=== PATIENT | male | born 1995 | race American Indian/Alaskan Native ===

== ENCOUNTER 2016-12-11 10:11 | Emergency (ER) | payer SELFPAY ==
[2016-12-11 11:51] LABS: Basophils % (Auto) 0.4 % (0.0-1.8); Eosinophils % (Auto) 0.4 % (0.0-4.3); Mean Corpuscular HGB Conc 33 % (32-34); Mean Corpuscular Hemoglobin 31 pg (28-32); Mean Corpuscular Volume 93 fl (84-94); Platelet Count 176 K/mm3 (140-440); Red Blood Count 4.85 M/mm3 (3.65-5.03); Red Cell Distribution Width 12.6 % (13.2-15.2); White Blood Count 6.4 K/mm3 (4.5-11.0)
[2016-12-11 11:59] LABS: Alanine Aminotransferase 11 units/L (7-56); Albumin 4.2 g/dL (3.9-5); Albumin/Globulin Ratio 1.8 %; Alkaline Phosphatase 55 units/L (35-129); Anion Gap 14 mmol/L; Bilirubin,Total 0.2 mg/dL (0.1-1.2); Blood Urea Nitrogen 13 mg/dL (9-20); Calcium 9.3 mg/dL (8.4-10.2); Carbon Dioxide 28 mmol/L (22-30); Chloride 103.7 mmol/L (98-107); Glucose 86 mg/dL (75-100); Lipase 24 units/L (13-60); Potassium 4.3 mmol/L (3.6-5.0); Sodium 141 mmol/L (137-145); Total Protein 6.5 g/dL (6.3-8.2)
--- NOTE | 2016-12-11 14:55 | Emergency Department Report ---
ED Abdominal Pain HPI - General Chief Complaint: Abdominal Pain Stated Complaint: ABDOMINAL PAIN Time Seen by Provider: 12/11/16 14:55 Source: patient Mode of arrival: Ambulatory Limitations: No Limitations - History of Present Illness Initial Comments: Patient complaining of intermittent cramping abdominal pain for the past 3 weeks. Patient denies fever, chills, testicular pain, dysuria, anorexia, or postprandial pain. MD Complaint: abdominal pain Location: periumbilical, LUQ, LLQ Migration to: no migration Severity: mild Severity scale (0 -10): 3 Quality: cramping Consistency: intermittent, now resolved Improves With: nothing Worsens With: nothing Associated Symptoms: vomiting. denies: diarrhea, chills, constipation, dysuria , hematochezia, anorexia - Related Data Previous Rx's Medication Instructions Recorded Last Taken Type Dicyclomine [Bentyl] 20 mg PO QID #15 bottle 12/11/16 Unknown Rx Allergies Allergy/AdvReac Type Severity Reaction Status Date / Time No Known Allergies Allergy Unverified 06/30/15 11:57 ED Review of Systems ROS: Stated complaint: ABDOMINAL PAIN Other details as noted in HPI Constitutional: denies: chills, fever Eyes: denies: eye pain, eye discharge, vision change ENT: denies: ear pain, throat pain Respiratory: denies: cough, shortness of breath, wheezing Cardiovascular: denies: chest pain, palpitations Endocrine: no symptoms reported Gastrointestinal: abdominal pain, nausea, vomiting. denies: diarrhea, constipation Genitourinary: denies: urgency, dysuria, testicular pain, testicular mass Musculoskeletal: denies: back pain, joint swelling, arthralgia Skin: denies: rash, lesions Neurological: denies: headache, weakness, paresthesias Psychiatric: denies: anxiety, depression Hematological/Lymphatic: denies: easy bleeding, easy bruising ED Past Medical Hx - Past Medical History Previous Medical History?: No - Surgical History Past Surgical History?: No - Social History Smoking Status: Current Some Day Smoker Substance Use Type: Alcohol, Marijuana - Medications Home Medications: Home Medications Medication Instructions Recorded Confirmed Last Taken Type Dicyclomine [Bentyl] 20 mg PO QID #15 bottle 12/11/16 Unknown Rx ED Physical Exam - General Limitations: No Limitations General appearance: alert, in no apparent distress - Head Head exam: Present: atraumatic, normocephalic - Eye Eye exam: Present: normal appearance, PERRL, EOMI - ENT ENT exam: Present: mucous membranes moist - Neck Neck exam: Present: normal inspection - Respiratory Respiratory exam: Present: normal lung sounds bilaterally, wheezes, rales. Absent: respiratory distress - Cardiovascular Cardiovascular Exam: Present: regular rate, normal rhythm. Absent: systolic murmur, diastolic murmur, rubs, gallop - GI/Abdominal GI/Abdominal exam: Present: soft, normal bowel sounds. Absent: distended, tenderness (resolved), guarding, rebound, rigid - Rectal Rectal exam: Present: deferred - Extremities Exam Extremities exam: Present: normal inspection - Back Exam Back exam: Present: normal inspection - Neurological Exam Neurological exam: Present: alert, oriented X3 - Psychiatric Psychiatric exam: Present: normal affect, normal mood - Skin Skin exam: Present: warm, dry, intact, normal color. Absent: rash ED Course Vital Signs 12/11/16 12/11/16 11:05 17:16 Temperature 97.9 F Pulse Rate 61 70 Respiratory 18 20 Rate Blood Pressure 114/73 Blood Pressure 122/68 [Right] O2 Sat by Pulse 99 99 Oximetry - Reevaluation(s) Reevaluation #1: 12/11/16 17:02 Resting comfortably, afebrile, normotensive normal cardiac and no distress. ED Medical Decision Making - Lab Data Result diagrams: 12/11/16 11:27 12/11/16 11:27 - EKG Data Rate: normal - Radiology Data No acute findings - Medical Decision Making I discussed the patient at since this is been intermittent crampy abdominal pain for the past several weeks since his labs are normal and has a normal abdominal exam on palpation and auscultation that CAT scan is neither needed or warranted. I explained to patient to follow up with GI would be best approach determining what is causing his abdominal cramping. Patient verbalized understanding of this and understands to return immediately to the ER for increased nausea vomiting, fever, increased pain, or any change that concerns him. Critical care attestation.: If time is entered above; I have spent that time in minutes in the direct care of this critically ill patient, excluding procedure time. ED Disposition Clinical Impression: Abdominal cramping in left lower quadrant Disposition: DISCHARGED TO HOME OR SELFCARE Is pt being admited?: No Condition: Stable Instructions: Abdominal Pain (ED) Prescriptions: Dicyclomine [Bentyl] 20 mg PO QID #15 bottle Referrals: PRIMARY CAREMD [Primary Care Provider] - 3-5 Days DANNY RIBEIRO MD [Staff Physician] - 3-5 Days Forms: Work/School Release Form(ED)
[2016-12-11 16:14] LABS: Bilirubin,Urine NEG (Negative); Blood,Urine NEG (Negative); Ketones,Urine NEG (Negative); Leukocyte Esterase,Urine NEG (Negative); Mucus,Urine FEW /HPF; Nitrite,Urine NEG (Negative); Protein,Urine <15 mg/dL mg/dL (Negative); Urobilinogen,Urine < 2.0 mg/dL (<2.0)
[2016-12-11 16:16] LABS: WBC,Urine < 1.0 /HPF (0.0-6.0)
[2016-12-11 17:17] VITALS: BP 122/68
== END 2016-12-11 17:16 | disposition home or self-care (01) ==
LOC: ED 10:11
DX: R10.32 Left lower quadrant pain (principal); F17.200 Nicotine dependence, unspecified, uncomplicated; F12.10 Cannabis abuse, uncomplicated
CPT/HCPCS: 36415; 80053; 81001; 83690; 85025; 99283

== ENCOUNTER 2017-02-08 08:26 | Emergency (ER) | payer SELFPAY ==
[2017-02-08 09:00] LABS: Basophils % (Auto) 0.6 % (0.0-1.8); Eosinophils % (Auto) 0.8 % (0.0-4.3); Hematocrit 43.6 % (35.5-45.6); Hemoglobin 14.7 gm/dl (11.8-15.2); Mean Corpuscular HGB Conc 34 % (32-34); Mean Corpuscular Hemoglobin 32 pg (28-32); Mean Corpuscular Volume 94 fl (84-94); Platelet Count 174 K/mm3 (140-440); Red Blood Count 4.64 M/mm3 (3.65-5.03); Red Cell Distribution Width 13.2 % (13.2-15.2); White Blood Count 5.6 K/mm3 (4.5-11.0)
[2017-02-08 09:41] LABS: Anion Gap 18 mmol/L; BUN/Creatinine Ratio 25.71; Blood Urea Nitrogen 18 mg/dL (9-20); Calcium 9.1 mg/dL (8.4-10.2); Carbon Dioxide 23 mmol/L (22-30); Chloride 101.4 mmol/L (98-107); Glucose 99 mg/dL (75-100); Potassium 4.1 mmol/L (3.6-5.0); Sodium 138 mmol/L (137-145)
--- NOTE | 2017-02-08 11:34 | Emergency Department Report ---
ED Chest Pain HPI - General Chief Complaint: Chest Pain Stated Complaint: VOMITING/CP Time Seen by Provider: 02/08/17 11:20 Source: patient Mode of arrival: Ambulatory Limitations: No Limitations - History of Present Illness Initial Comments: 21-year-old male past medical history GERD presents with complaint of one episode of brief chest pain 3 days ago. Patient states that he was flexing his chest and felt slight upper chest pain. Last for a few moments and went away. Patient also states that he has been having discharge from his penis and burning when he urinates for approximately one week. Patient is unsure if he was exposed to chlamydia or gonorrhea. Denies any fevers chills no nausea no vomiting no shortness of breath no palpitations no headache no dizziness reported by patient. Is awake alert and oriented 3 not in acute distress, nontoxic appearing. Patient states he smokes marijuana occasionally. MD Complaint: chest pain Onset/Timin -: days(s) Pain Location: other (upper anterior chest wall) Pain Radiation: none Severity: mild Consistency: now resolved Treatments Prior to Arrival: none Aspirin use within the Past 7 Days: (0) No - Related Data Previous Rx's Medication Instructions Recorded Last Taken Type Famotidine [Pepcid] 20 mg PO BID #60 tablet 02/08/17 Unknown Rx Lansoprazole [Prevacid] 15 mg PO BID #60 cap 02/08/17 Unknown Rx Naproxen [Naproxen TAB] 250 mg PO BID PRN #20 tablet 02/08/17 Unknown Rx Allergies Allergy/AdvReac Type Severity Reaction Status Date / Time No Known Allergies Allergy Unverified 02/08/17 08:43 BRONWYN score - Bronwyn Score Age > 65: (0) No Aspirin use within the Past 7 Days: (0) No 3 or more CAD Risk Factors: (0) No 2 or more Angina events in past 24 hrs: (0) No Known CAD with more than 50% Stenosis: (0) No Elevated Cardiac Markers: (0) No ST Deviation Greater than 0.5mm: (0) No BRONWYN Score: 0 ED Review of Systems ROS: Stated complaint: VOMITING/CP Other details as noted in HPI Constitutional: denies: chills, fever Eyes: denies: eye pain, eye discharge, vision change ENT: denies: ear pain, throat pain Respiratory: denies: cough, shortness of breath, wheezing Cardiovascular: chest pain (1 episode of brief chest pain 3 days ago.). denies : palpitations Endocrine: no symptoms reported Gastrointestinal: denies: abdominal pain, nausea, diarrhea Genitourinary: dysuria (dysuria and discharge approximately one week.). denies : urgency Musculoskeletal: denies: back pain, joint swelling, arthralgia Skin: denies: rash, lesions Neurological: denies: headache, weakness, paresthesias Psychiatric: denies: anxiety, depression Hematological/Lymphatic: denies: easy bleeding, easy bruising ED Past Medical Hx - Past Medical History Previous Medical History?: No - Surgical History Past Surgical History?: No - Social History Smoking Status: Never Smoker Substance Use Type: Alcohol, Marijuana - Medications Home Medications: Home Medications Medication Instructions Recorded Confirmed Last Taken Type Famotidine [Pepcid] 20 mg PO BID #60 tablet 02/08/17 Unknown Rx Lansoprazole [Prevacid] 15 mg PO BID #60 cap 02/08/17 Unknown Rx Naproxen [Naproxen TAB] 250 mg PO BID PRN #20 tablet 02/08/17 Unknown Rx ED Physical Exam - General Limitations: No Limitations General appearance: alert, in no apparent distress - Head Head exam: Present: atraumatic, normocephalic - Eye Eye exam: Present: normal appearance, PERRL, EOMI - ENT ENT exam: Present: mucous membranes moist - Neck Neck exam: Present: normal inspection - Respiratory Respiratory exam: Present: normal lung sounds bilaterally, chest wall tenderness (reproducible chest wall tenderness anterior chest). Absent: respiratory distress - Cardiovascular Cardiovascular Exam: Present: regular rate, normal rhythm. Absent: systolic murmur, diastolic murmur, rubs, gallop - GI/Abdominal GI/Abdominal exam: Present: soft, normal bowel sounds - Rectal Rectal exam: Present: deferred - Extremities Exam Extremities exam: Present: normal inspection - Back Exam Back exam: Present: normal inspection - Neurological Exam Neurological exam: Present: alert, oriented X3 - Psychiatric Psychiatric exam: Present: normal affect, normal mood - Skin Skin exam: Present: warm, dry, intact, normal color. Absent: rash ED Course Vital Signs 02/08/17 08:43 Temperature 98.0 F Pulse Rate 65 Respiratory 16 Rate Blood Pressure 111/77 O2 Sat by Pulse 100 Oximetry ED Medical Decision Making - Lab Data Result diagrams: 02/08/17 08:50 02/08/17 08:50 - Medical Decision Making A/P: Chest pain, urethritis 1-empiric treatment of urethritis 2-troponin negative 2, EKG sinus rhythm, chest x-ray within normal limits, BMP within normal limits. BRONWYN 0 points 5% risk at 14 days of: all-cause mortality, new or recurrent WA, or severe recurrent ischemia requiring urgent revascularization. HEART Score 0 points Low Score (0-3 points) Risk of MACE of 0.9-1.7%. Wells score for PE 0.0 points. Low risk group: 1.3% chance of PE in an ED population. Another study assigned scores 4 as PE Unlikely and had a 3% incidence of PE. 0 criteria No need for further workup, as <2% chance of PE. If no criteria are positive and clinicians pre-test probability is <15%, PERC Rule criteria are satisfied. 3- f/u with PMD 4- chest pain is reproducible with movement. Critical care attestation.: If time is entered above; I have spent that time in minutes in the direct care of this critically ill patient, excluding procedure time. ED Disposition Clinical Impression: Musculoskeletal chest pain, Urethritis Disposition: DISCHARGED TO HOME OR SELFCARE Is pt being admited?: No Does the pt Need Aspirin: No Condition: Stable Instructions: Chest Pain (ED), Nonspecific Urethritis in Men (ED) Prescriptions: Famotidine [Pepcid] 20 mg PO BID #60 tablet Lansoprazole [Prevacid] 15 mg PO BID #60 cap Naproxen [Naproxen TAB] 250 mg PO BID PRN #20 tablet PRN Reason: Pain Referrals: ABRAHAM MONROE MD [Staff Physician] - 3-5 Days [facility] [Provider Group] - 3-5 Days SAL OATES MD [Staff Physician] - 3-5 Days Forms: STI Treatment and Prevention, Work/School Release Form(ED) Time of Disposition: 12:43
[2017-02-08] MEDS ORDERED: XYLOCAINE 1% MPF 5 mL INFILTRATI ONE (11:40)
[2017-02-08] MEDS ORDERED: ZITHROMAX PO ONE (11:40)
[2017-02-08] MEDS ORDERED: ROCEPHIN IM ONE (11:40)
[2017-02-08 11:55] LABS: Bilirubin,Urine NEG (Negative); Blood,Urine NEG (Negative); Ketones,Urine NEG (Negative); Leukocyte Esterase,Urine NEG (Negative); Nitrite,Urine NEG (Negative); Protein,Urine <15 mg/dL mg/dL (Negative); Urobilinogen,Urine < 2.0 mg/dL (<2.0); WBC,Urine < 1.0 /HPF (0.0-6.0)
--- NOTE | 2017-02-08 12:15 | XRay Report ---
ROUTINE CHEST, TWO VIEWS: HISTORY: chest pain. The trachea, heart, mediastinal contour, lung arellano and bony thorax are unremarkable. IMPRESSION: Unremarkable chest x-ray.
[2017-02-08 12:53] VITALS: BP 121/80
== END 2017-02-08 13:24 | disposition home or self-care (01) ==
LOC: ED 08:26
DX: R07.89 Other chest pain (principal); N34.2 Other urethritis; F12.10 Cannabis abuse, uncomplicated
CPT/HCPCS: 36415; 71020; 80048; 81001; 82550; 84484; 85025; 87086; 87591; 93005; 93010; 96372; 99285; J0696